=== PATIENT | female | born 1975 | race Hispanic/Latino ===

== ENCOUNTER → 2020-06-26 | Day surgery (SDC) | payer BC ==
[2020-06-02 11:08] LABS: BASOPHILS % 0.6 % (0.0-1.0); EOSINOPHILS # (AUTO) 0.1 (0.0-0.4); EOSINOPHILS % 0.9 % (0.0-6.0); HEMATOCRIT 40.1 % (34.2-44.1); HEMOGLOBIN 13.1 g/dL (12.0-16.0); LYMPHOCYTES % 30.1 % (18.0-39.1); MEAN CORPUSCULAR HEMOGLOBIN 25.2 pg (28-32); MEAN CORPUSCULAR HGB CONC 32.7 g/dL (31-35); MEAN CORPUSCULAR VOLUME 77.3 fL (81-99); MONOCYTES # (AUTO) 0.5 (0.2-0.8); MONOCYTES % 7.3 % (4.4-11.3); NEUTROPHILS # (AUTO) 4.1 (2.1-6.9); PLATELET COUNT 353 x10e3/uL (140-360); RED BLOOD COUNT 5.19 x10e6/uL (3.6-5.1); RED CELL DISTRIBUTION WIDTH 16.9 % (11.7-14.4)
[2020-06-02 11:29] LABS: ALANINE AMINOTRANSFERASE 17 IU/L (0-55); ALBUMIN 3.8 g/dL (3.5-5.0); ALBUMIN/GLOBULIN RATIO 1.2 (0.8-2.0); ALKALINE PHOSPHATASE 53 IU/L (40-150); BLOOD UREA NITROGEN 17 mg/dL (7-26); BUN/CREATININE RATIO 24 (6-25); CARBON DIOXIDE 26 mmol/L (22-29); CHLORIDE 107 mmol/L (98-107); CREATININE, SERUM 0.71 mg/dL (0.57-1.11); EST GLOMERULAR FILTRATION RATE > 60 ML/MIN (60-); GLUCOSE 92 mg/dL (74-118); SODIUM 140 mmol/L (136-145)
[2020-06-02 11:48] LABS: CLARITY,URINE CLEAR (CLEAR); COLOR,URINE YELLOW (YELLOW); LEUKOCYTE ESTERASE ,URINE NEGATIVE (NEGATIVE); NITRITE,URINE NEGATIVE (NEGATIVE); PROTEIN,URINE DIPSTICK NEGATIVE (NEGATIVE)
[2020-06-02 11:49] LABS: BILIRUBIN,URINE NEGATIVE (NEGATIVE); KETONES,URINE NEGATIVE (NEGATIVE); URINE UROBILINOGEN 0.2 mg/dL (0.2 - 1)
[~2020-06-26] MED LIST: ACETAMINOPHEN/CODEINE 300MG - 30MG TAB ONE; BUPIVACAINE 0.25% 30ML SDV ONE; DEXAMETHASONE SOD PHOS INJ 4 MG/ML VIAL ONE; FENTANYL CITRATE/PF 100MCG/2 ML INJ ONE; IBUPROFEN200 MG PO; KETOROLAC TROMETHAMINE 30 MG/ML VIAL ONE; LIDOCAINE HCL 2% LOCAL INJ 5 ML SDV VIAL INJ ONE; MIDAZOLAM HCL 2 MG/2 ML VIAL ONE; ONDANSETRON HCL INJ 2MG/ML 2ML 2 MG/ML VIAL ONE; PROPOFOL IV EMULSION 10 MG/ML 20 ML VIAL ONE; ROCURONIUM BROMIDE 10 MG/ML 5ML VIAL IV ONE; SEVOFLURANE INHAL SOLN 250 ML PEN BTL ONE; VIT C PO; [UNRECOGNIZED DRUG - OTHER] PO
[2020-06-26 15:45] VITALS: BP 110/74
--- NOTE | 2020-06-26 18:10 | Operative Report ---
DATE OF PROCEDURE: 06/26/2020 SURGEON: Ramón Gonzales MD PREOPERATIVE DIAGNOSES: Cholecystitis and cholelithiasis. POSTOPERATIVE DIAGNOSES: Cholecystitis and cholelithiasis. OPERATION PERFORMED: Laparoscopic cholecystectomy. FORESTRY AID: Dr. Damion Gonzales and DWAYNE Zapata. ANESTHESIA: General. COMPLICATIONS: None. ESTIMATED BLOOD LOSS: Minimal. PROCEDURE IN DETAIL: With the patient lying in bed in the supine position under good general endotracheal anesthesia, the abdomen was prepped with Betadine solution and draped in the usual manner. A Veress needle was introduced into the right upper quadrant and pneumoperitoneum was established without any difficulty. A 5 mm trocar was placed in the right subcostal region and a 5 mm video laparoscope was placed into the intra-abdominal cavity. Under direct vision, an 11 mm trocar was placed into the small umbilical hernia that the patient had and a 10 mm video laparoscope was placed into the intra-abdominal cavity. Video laparoscopy at this point revealed a gallbladder that had large stone impacted at the neck. The rest of the abdominal exploration was otherwise within normal limits. The adhesions to the gallbladder were then slowly and carefully taken down. The peritoneum overlying the neck of the gallbladder was then opened and the cystic duct was identified. The cystic duct was followed to its junction with the common duct. The cystic duct was then circumferentially dissected away from the common duct, doubly clipped and divided. The cystic artery was similarly doubly clipped and divided. The gallbladder was then slowly and carefully taken off the liver bed using the cautery scissors and perfect hemostasis was ascertained. The gallbladder was grasped through the umbilical port and removed without any difficulty. Video laparoscopy was then again carried out. The liver bed was found to be perfectly dry, all of the excess fluid was aspirated, the pneumoperitoneum was evacuated, and all the trocars were removed under direct vision. The small hernia defect in the umbilicus was then closed with a [id number] of 0 Vicryl. All layers were infiltrated on the way out with solution of 0.25% Marcaine. Subcutaneous tissue was approximated with 3-0 Vicryl and the skin was closed with subcuticular 5-0 Vicryl. Benzoin, Steri-Strips, and Band-Aids were applied. The sponge, lap, and needle counts were correct. The patient tolerated the procedure well and returned to the recovery room in stable condition. MD JAYA Mullins/EDMUND /[id number]
== END | disposition home or self-care (01) ==
LOC: OR 11:03
PROVIDERS: ATTEND Surgery
DX: K80.10 Calculus of gallbladder with chronic cholecystitis without obstruction (principal); K42.9 Umbilical hernia without obstruction or gangrene; K82.8 Other specified diseases of gallbladder; Z01.810 Encounter for preprocedural cardiovascular examination; Z01.812 Encounter for preprocedural laboratory examination; Z20.828 Contact with and (suspected) exposure to other viral communicable diseases; Z86.19 Personal history of other infectious and parasitic diseases
CPT/HCPCS: 36415; 47562; 80053; 81003; 81025; 85025; 88304; 93005; C1766; J2250; J3010; U0002; J1100; J1885; J2001; J2405